=== PATIENT | female | born 1955 | race Two or more races ===

== ENCOUNTER 2016-08-24 16:11 | Emergency (ER) | payer MEDICAID ==
[~2016-08-24] VITALS: Ht 160 cm; Wt 60.3 kg
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
[2016-08-24] MEDS ORDERED: METF500T4 PO (16:23)
[2016-08-24] MEDS ORDERED: CLONIDINE HCL 0.1 MG TABLET ONE (16:24)
[2016-08-24] MEDS ORDERED: CLONIDINE HCL 0.1 MG TABLET PO ONE (16:30)
--- NOTE | 2016-08-24 18:03 | NUR ---
Patient discharged to home in stable condition. Written and verbal after care instructions given. Patient verbalizes understanding of instruction. DRESSING PLACED ON ABRASION TO R KNEE. ARACELIS WRAPPED L ANKLE PER PT REQUEST.
[2016-08-24 18:06] VITALS: BP 175/78
== END 2016-08-24 18:06 | disposition home or self-care (01) ==
LOC: ER 16:15
DX: S40.011A Contusion of right shoulder, initial encounter (principal); S90.02XA Contusion of left ankle, initial encounter; I10 Essential (primary) hypertension; E11.9 Type 2 diabetes mellitus without complications; W22.8XXA Striking against or struck by other objects, initial encounter; Y93.89 Activity, other specified; Y92.830 Public park as the place of occurrence of the external cause; Y99.9 Unspecified external cause status
CPT/HCPCS: 73030; 73564; 73610; 99284; A4606; Z7610

== ENCOUNTER 2019-06-23 16:27 | Emergency (ER) | payer MEDICARE, OTHER ==
[~2019-06-23] VITALS: Ht 157.5 cm; Wt 68.5 kg
[~2019-06-23 16:27] MED LIST: METF-440 PO
[2019-06-23] MEDS ORDERED: hydrALAZINE HCL IV 20 MG VIAL ONE (16:44)
--- NOTE | 2019-06-23 16:53 | NUR ---
blood taken and sent to lab
[2019-06-23 17:00] LABS: BASOPHILS # (AUTO) 0.1 /CMM (0.0-0.2); EOSINOPHILS % (AUTO) 2.1 % (0.0-6.0); HEMATOCRIT 33 % (33-45); HEMOGLOBIN 10.9 g/dL (11.5-14.8); LYMPHOCYTES # (AUTO) 1.5 /CMM (0.8-4.8); MEAN CORPUSCULAR HGB CONC 33 g/dl (31.0-36.0); MEAN CORPUSCULAR VOLUME 95 fL (82-100); MONOCYTES # (AUTO) 0.3 /CMM (0.1-1.30); MONOCYTES % (AUTO) 5.9 % (2.0-12.0); NEUTROPHILS # (AUTO) 3.9 /CMM (1.8-8.9); PLATELET COUNT (AUTO) 166 /CMM (150-450); RED BLOOD CELL COUNT(AUTO) 3.49 MIL/uL (4.0-5.2); WHITE BLOOD COUNT (AUTO) 5.9 K/uL (4.3-11.0)
[2019-06-23] MEDS ORDERED: hydrALAZINE HCL IV 20 MG VIAL IV ONE ×2 (17:00)
--- NOTE | 2019-06-23 17:00 | NUR ---
pt came to er bed 7 c/o headache and high blood pressure. pt has a fistula on the left arm for dialysis. aaox4. not in any distress. no sob. breathing evenly and unlabored. connected to classroom monitor.
[2019-06-23 17:07] LABS: CALCIUM, SERUM 8.2 mg/dL (8.5-10.1); CARBON DIOXIDE 29 mmol/L (21-32); CHLORIDE 102 mmol/L (98-107); CREATININE 5.5 mg/dL (0.6-1.3); GLUCOSE 296 mg/dL (74-106); POTASSIUM 4.4 mmol/L (3.5-5.1); SODIUM SERUM 139 mmol/L (136-145); UREA NITROGEN, BLOOD 27 mg/dL (7-18)
[2019-06-23] MEDS ORDERED: ACETAMINOPHEN ES 500 MG TABLET ONE (18:10)
[2019-06-23] MEDS ORDERED: ACETAMINOPHEN ES 500 MG TABLET PO ONE (18:30)
--- NOTE | 2019-06-23 18:30 | NUR ---
IV removed. Catheter intact and site benign. Pressure and 4x4 applied to site. No bleeding noted. Patient discharged to home in stable condition. Written and verbal after care instructions given. Patient verbalizes understanding of instruction.
[2019-06-23 18:42] VITALS: BP 138/73
== END 2019-06-23 18:42 | disposition home or self-care (01) ==
LOC: ER 16:28
DX: I12.0 Hypertensive chronic kidney disease with stage 5 chronic kidney disease or end stage renal disease (principal); E11.22 Type 2 diabetes mellitus with diabetic chronic kidney disease; N18.6 End stage renal disease; R51 Headache; E11.9 Type 2 diabetes mellitus without complications; E78.5 Hyperlipidemia, unspecified; Z99.2 Dependence on renal dialysis; Z90.710 Acquired absence of both cervix and uterus; Z79.899 Other long term (current) drug therapy
CPT/HCPCS: 36415; 71045; 84484; 80048; 85025; 93005; 96374; 99284; J0360

== ENCOUNTER 2020-07-05 15:18 | Inpatient (IN) | payer MEDICARE, OTHER ==
[~2020-07-05] VITALS: Ht 160 cm; Wt 60.3 kg
[2020-07-05] MEDS ORDERED: MELO-105 PO (15:49)
[2020-07-05] MEDS ORDERED: ATOR80TA PO (15:49)
[2020-07-05] MEDS ORDERED: LEVO50TA8 PO (15:49)
[2020-07-05] MEDS ORDERED: NIFE90TA61 PO (15:49)
[2020-07-05] MEDS ORDERED: GABA300C PO (15:49)
[2020-07-05] MEDS ORDERED: SEVE800T8 PO (15:49)
[2020-07-05] MEDS ORDERED: LABE200T5 PO (15:49)
--- NOTE | 2020-07-05 15:50 | NUR ---
EUMST491 HOME FOR WEAKNESS X 2 MONTHS. UNABLE TO COMPLETE DIALYSIS PER EMS GOES TO DIALYSIS BUT UNABLE TO COMPLETE THIS WEEK. PATIENT A/OX4, BREATHING EVEN AND UNLABORED, SCREAMING, RESTLESS C/O PAIN ON RECTAL AREA. DR. CALLE AT BEDSIDE FOR EVAL.
[2020-07-05] MEDS ORDERED: INSU100V7 SQ (15:51)
[2020-07-05] MEDS ORDERED: INSU100I4 SQ (15:51)
--- NOTE | 2020-07-05 16:04 | NUR ---
IV LINE ESTABLISHED, BLOOD DRAWN AND SENT TO LAB. COVID SWAB SENT WELL.
[2020-07-05] MEDS ORDERED: ACETAMINOPHEN 325 MG TABLET ONE (16:09)
[2020-07-05 16:12] LABS: BASOPHILS # (AUTO) 0.1 /CMM (0.0-0.2); BASOPHILS % (AUTO) 1.5 % (0.0-2.0); EOSINOPHILS % (AUTO) 0.8 % (0.0-6.0); HEMATOCRIT 39 % (33-45); HEMOGLOBIN 12.5 g/dL (11.5-14.8); LYMPHOCYTES # (AUTO) 1.3 /CMM (0.8-4.8); LYMPHOCYTES % (AUTO) 23.8 % (20.0-44.0); MEAN CORPUSCULAR HGB CONC 32 g/dl (31.0-36.0); MEAN CORPUSCULAR VOLUME 100 fL (82-100); MONOCYTES # (AUTO) 0.4 /CMM (0.1-1.30); MONOCYTES % (AUTO) 7.8 % (2.0-12.0); NEUTROPHILS # (AUTO) 3.6 /CMM (1.8-8.9); NEUTROPHILS % (AUTO) 66.1 % (43.0-81.0); PLATELET COUNT (AUTO) 172 /CMM (150-450); RED BLOOD CELL COUNT(AUTO) 3.87 MIL/uL (4.0-5.2); WHITE BLOOD COUNT (AUTO) 5.5 K/uL (4.3-11.0)
[2020-07-05 16:25] LABS: CALCIUM, SERUM 8.6 mg/dL (8.5-10.1); CREATININE 6.5 mg/dL (0.6-1.3); POTASSIUM 5.2 mmol/L (3.5-5.1)
[2020-07-05] MEDS ORDERED: ONDANSETRON HCL/PF 4 MG/2 ML VIAL IV ONE (16:30)
[2020-07-05] MEDS ORDERED: ACETAMINOPHEN 325 MG TABLET PO ONE (16:30)
[2020-07-05] MEDS ORDERED: ONDANSETRON HCL/PF 4 MG/2 ML VIAL ONE (16:30)
--- NOTE | 2020-07-05 16:39 | NUR ---
LAB CALLED PT COVID RESULT NEGATIVE (-)
[2020-07-05] MEDS ORDERED: HYDROCODONE/APAP 5/325MG TABLET PO PRN (17:00)
[2020-07-05] MEDS ORDERED: Z GUARD REMEDY 2 OZ OINT TP PRN (17:00)
[2020-07-05] MEDS ORDERED: ONDANSETRON HCL/PF 4 MG/2 ML VIAL IVP PRN (17:00)
[2020-07-05] MEDS ORDERED: SODIUM POLYSTYRENE SULF. PWD 15 GM UDC PO ONE (17:00)
[2020-07-05] MEDS ORDERED: ACETAMINOPHEN 325 MG TABLET PO PRN (17:00)
[2020-07-05] MEDS ORDERED: MAG HYDROX/AL HYDROX/SIMETH 30 ML UDC PO PRN (17:00)
--- NOTE | 2020-07-05 17:00 | NUR ---
APPLIED GELFOAM ON LEFT BUTTOCK D/T ABSCESS.
[2020-07-05] MEDS: INSULIN LISPRO/ASPART 100 UNIT/ML CARTRIDGE SQ SCH (18:00)
[2020-07-05 18:06] LABS: C-REACTIVE PROTEIN 2.3 mg/dL (0.0-0.9)
--- NOTE | 2020-07-05 19:01 | NUR ---
PROVIDED PATIENT FOOD TRAY.
--- NOTE | 2020-07-05 19:45 | NUR ---
REC'D PT AAOX4, HERE FOR WEAKNESS, PT AMBULATORY WITH STEADY GAIT, AWAITING BED PLACEMENT AT THIS TIME, DENIES ANY SOB/CP. NAD. VSS ,WCTM
[2020-07-05 20:02] LABS: BILIRUBIN,DIRECT 0.4 mg/dL (0.0-0.2); BILIRUBIN,TOTAL 0.9 mg/dL (0.2-1.0)
[2020-07-05] MEDS: ATORVASTATIN 40 MG TABLET PO SCH (22:00)
[2020-07-05] MEDS ORDERED: VANCOMYCIN 1 GM in IV D5W 250ml IV ONE (22:00)
[2020-07-05] MEDS: INSULIN GLARGINE, 100 UNIT/ML CARTRIDGE SQ SCH (22:00)
[2020-07-06] MEDS ORDERED: HYDROCODONE/APAP 5/325MG TABLET ONE (01:57)
--- NOTE | 2020-07-06 02:00 | NUR ---
NORCO 45 GIVEN ORDER PER PT'S REQUEST AND C/O GENRALIZED BODY PAIN
[2020-07-06] MEDS ORDERED: LABETALOL HCL (100MG) 100 MG TABLET ONE ×2 (02:50→08:12)
[2020-07-06] MEDS ORDERED: SODIUM POLYSTYRENE SULFONATE 15 G/60 ML BOTTLE ONE (02:50)
[2020-07-06] MEDS ORDERED: VANCOMYCIN 1 GM VIAL ONE (02:50)
[2020-07-06] MEDS ORDERED: PANTOPRAZOLE 40 MG TABLET.DR PO ONE ×2 (02:51→08:13)
[2020-07-06] MEDS ORDERED: GABAPENTIN 300 MG CAPSULE ONE (02:51)
[2020-07-06] MEDS ORDERED: INSULIN REGULAR, HUMAN 100 UNIT/ML 10 ML VIAL ONE (02:52)
[2020-07-06] MEDS: PANTOPRAZOLE 40 MG TABLET.DR PO SCH ×2 (02:53→08:40)
[2020-07-06] MEDS: LABETALOL HCL (100MG) 100 MG TABLET PO SCH ×3 (02:53→17:00)
[2020-07-06] MEDS: GABAPENTIN 300 MG CAPSULE PO SCH ×2 (02:54→22:05)
--- NOTE | 2020-07-06 06:45 | NUR ---
NO ACUTE EVENTS NOTED,. VSS. NAD. WCTM
[2020-07-06] MEDS ORDERED: VANCOMYCIN 500 MG in IV D5W 100 ML IV PRN (08:00)
[2020-07-06] MEDS ORDERED: LEVOTHYROXINE SODIUM 50 MCG TABLET ONE (08:12)
[2020-07-06] MEDS: LEVOTHYROXINE SODIUM 50 MCG TABLET PO SCH (08:40)
[2020-07-06] MEDS: SEVELAMER CARBONATE 800 MG TABLET PO SCH ×3 (08:54→18:00)
[2020-07-06] MEDS: INSULIN LISPRO/ASPART 100 UNIT/ML CARTRIDGE SQ SCH ×3 (08:56→17:48)
[2020-07-06] MEDS: NIFEdipine XL (30MG) 30 MG TAB PO SCH (08:56)
--- NOTE | 2020-07-06 09:17 | NUR ---
PATIENT ATE 75% OF THE MEAL. MEDICATIONS ADMINISTERED ORDERED. VITALS SIGNS WITHIN NORMAL RANGE.
[2020-07-06 10:11] LABS: BASOPHILS # (AUTO) 0.1 /CMM (0.0-0.2); BASOPHILS % (AUTO) 1.1 % (0.0-2.0); EOSINOPHILS % (AUTO) 1.2 % (0.0-6.0); HEMATOCRIT 35 % (33-45); HEMOGLOBIN 11.4 g/dL (11.5-14.8); LYMPHOCYTES # (AUTO) 1.1 /CMM (0.8-4.8); MEAN CORPUSCULAR HGB CONC 33 g/dl (31.0-36.0); MEAN CORPUSCULAR VOLUME 101 fL (82-100); MONOCYTES # (AUTO) 0.3 /CMM (0.1-1.30); MONOCYTES % (AUTO) 6.8 % (2.0-12.0); NEUTROPHILS # (AUTO) 3.4 /CMM (1.8-8.9); NEUTROPHILS % (AUTO) 67.9 % (43.0-81.0); PLATELET COUNT (AUTO) 149 /CMM (150-450); RED BLOOD CELL COUNT(AUTO) 3.46 MIL/uL (4.0-5.2)
[2020-07-06 10:38] LABS: ALBUMIN 2.7 g/dL (3.4-5.0); BILIRUBIN,TOTAL 0.7 mg/dL (0.2-1.0); CALCIUM, SERUM 8.2 mg/dL (8.5-10.1); MAGNESIUM 2.8 mg/dL (1.8-2.4); PHOSPHORUS 7.7 mg/dL (2.5-4.9); POTASSIUM 4.8 mmol/L (3.5-5.1); TOTAL PROTEIN, SERUM 6.1 g/dL (6.4-8.2)
[2020-07-06 10:43] LABS: CREATININE 7.5 mg/dL (0.6-1.3)
--- NOTE | 2020-07-06 13:56 | NUR ---
DESHAUN HERMOSILLO. PATIENT GOES TO [facility].
--- NOTE | 2020-07-06 14:10 | NUR ---
REPORT GIVEN TO RENE NICHOLE FOR KIRBY.
--- NOTE | 2020-07-06 14:23 | NUR ---
PATIENT TRANSFERRED TO ROOM 325-1 VIA ACLS PROTOCOL. NO DISTRESS NOTED, NEEDS ATTENDED.
[2020-07-06 16:00] VITALS: BP 120/49
--- NOTE | 2020-07-06 19:34 | NUR ---
END OF SHIFT SUMMARY RECEIVED PATIENT IN BED. A/O X 3. L HAND #18. NO S/S OF RESPIRATORY DISTRESS. ON SHIPLEY CATH. ROUTINE MEDS WERE GIVEN ORDERED. SAFETY MEASURES MAINTAINED. BED IN LOWEST POSITION, BRAKES LOCKED. SIDE RAILS UP X2. CALL LIGHT WITHIN REACH. WILL ENDORSE TO VENEER TAPER FOR KIRBY. Addendum: 07/06/20 at 1939 by RENE VICTOR RN WRONG PATIENT. DISREGARD THIS NOTE.
--- NOTE | 2020-07-06 19:43 | NUR ---
*END OF SHIFT SUMMARY PATIENT IN BED. A/O X4. NO SOB NOTED. IN NO APPARENT DISTRESS. MEIR FISTULA. R WRIST #20 G. RCW HD CATH. S/P HD 2L OUT. POST VITAL SIGNS BP 92/50 CA 101 RR 14 TEMP 98.1. BS OF 65, HELD INSULIN LISPRO/ASPART. SAFETY MEASURES MAINTAINED. BED IN LOWEST POSITION, LOCKED. SIDE RAILS UP X2. CALL LIGHT WITHIN REACH. WILL ENDORSE TO SOFTWARE ENGINEERING ANALYST FOR KIRBY. *PLEASE DISREGARD THE FIRST "END OF SHIFT SUMMARY"
--- NOTE | 2020-07-06 19:45 | NUR ---
TELE/RN OPENING NOTES RECEIVED PATIENT RESTING IN BED. PATIENT IS ALERT AND ORIENTED X 4. PATIENTS BREATHING IS EVEN AND UNLABORED. NO SIGNS OF SOB OR RESPIRATORY DISTRESS NOTED. PATIENT HAS IV ACCESS ON R WRIST #20G, MEIR FISTULA, RCW PERMCATH. SAFETY MEASURES ARE IN PLACE, BED IS LOCKED AND PLACED IN THE LOWEST POSITION. CALL LIGHT IS WITHIN REACH, SIDE RAILS UP X 2. WILL CONTINUE TO MONITOR THROUGH OUT SHIFT.
[2020-07-06 20:35] VITALS: BP 135/54
[2020-07-06] MEDS: INSULIN GLARGINE, 100 UNIT/ML CARTRIDGE SQ SCH (22:00)
[2020-07-06] MEDS: ATORVASTATIN 40 MG TABLET PO SCH (22:05)
[2020-07-07 00:21] VITALS: BP 120/91
[2020-07-07 05:23] VITALS: BP 143/59
--- NOTE | 2020-07-07 07:00 | NUR ---
TELE/RN CLOSING NOTES PATIENT RESTING IN BED. PATIENT IS ALERT AND ORIENTED X 4. PATIENTS BREATHING IS EVEN AND UNLABORED. NO SIGNS OF SOB OR RESPIRATORY DISTRESS NOTED. PATIENT HAS IV ACCESS ON R WRIST #20G, MEIR FISTULA, RCW PERMCATH. ALL NEEDS HAVE BEEN MET DURING SHIFT. SAFETY MEASURES ARE IN PLACE, BED IS LOCKED AND PLACED IN THE LOWEST POSITION. CALL LIGHT IS WITHIN REACH, SIDE RAILS UP X 2. WILL ENDORSE CARE TO DAY SHIFT NURSE.
--- NOTE | 2020-07-07 07:58 | NUR ---
MS RN OPENING NOTE PATIENT IS IN BED RESTING. PATIENT IS IN NO ACUTE DISTRESS. NO SOB NOTED. PATIENT IS ON ROOM AIR. PATIENT IS AWAKE AND STABLE. SAFETY PRECAUTIONS ARE IN PLACE. BED IS LOCKED AND IN THE LOWEST POSITION. SIDE RAILS ARE UP, CALL LIGHT WITHIN REACH. WILL CONTINUE TO MONITOR THROUGH OUT THE SHIFT.
[2020-07-07 08:00] VITALS: BP 141/67
[2020-07-07] MEDS: MAGNESIUM HYDROXIDE 30 ML UDC PO PRN ×2 (09:02→23:08)
[2020-07-07] MEDS: NIFEdipine XL (30MG) 30 MG TAB PO SCH (09:02)
[2020-07-07] MEDS: SEVELAMER CARBONATE 800 MG TABLET PO SCH ×3 (09:04→18:07)
[2020-07-07] MEDS: PANTOPRAZOLE 40 MG TABLET.DR PO SCH (09:04)
[2020-07-07] MEDS: LEVOTHYROXINE SODIUM 50 MCG TABLET PO SCH (09:04)
[2020-07-07] MEDS: LABETALOL HCL (100MG) 100 MG TABLET PO SCH ×2 (09:04→17:00)
--- NOTE | 2020-07-07 09:24 | NUR ---
WOUND CARE CONSULT: PT PRESENTS WITH LEFT BUTTOCK HEALING WOUND, PRESENT ON ADMISSION. RECOMMENDATIONS MADE FOR SKIN PROTECTION AND WOUND CARE. DISCUSSED WITH NURSING STAFF. MD IN AGREEMENT WITH PLAN OF CARE. THERE IS A RASH/SKIN CONDITION TO MIDBACK, UNKNOWN ETIOLOGY. RN TO DISCUSS WITH MD TODAY. Addendum: 07/07/20 at 0926 by CHRISSY MCGRATH WNDNU Amended: Links added.
[2020-07-07] MEDS: INSULIN LISPRO/ASPART 100 UNIT/ML CARTRIDGE SQ SCH ×3 (09:51→18:00)
--- NOTE | 2020-07-07 09:52 | NUR ---
ORTHO NURSE NOTE INSULIN LISPRO WAS NOT AVAILABLE, ORDERED FROM PHARMACY.
[2020-07-07 16:00] VITALS: BP 100/49
[2020-07-07] MEDS: NEOMY SULF/BACITRAC ZN/POLY 15 GM TUBE TP SCH (18:02)
--- NOTE | 2020-07-07 18:07 | NUR ---
SUPERVISOR SHEARING NOTE PATIENTS BLOOD SUGAR WAS 71, DID NOT ADMINISTER SCHEDULED INSULIN.
--- NOTE | 2020-07-07 19:48 | NUR ---
SPRING [employer]ODUCTION SUPERVISOR CLOSING NOTE PATIENT IS IN BED RESTING. PATIENT IS IN NO ACUTE DISTRESS. NO SOB NOTED. PATIENT IS ON ROOM AIR. PATIENT IS ON TELE MONITOR READING SR 78. PATIENT IS AWAKE AND STABLE. SAFETY PRECAUTIONS ARE IN PLACE. BED IS LOCKED AND IN THE LOWEST POSITION. SIDE RAILS ARE UP, CALL LIGHT WITHIN REACH. ENDORSE PATIENT TO RIGGING MAN NURSE FOR KIRBY.
[2020-07-07 20:00] VITALS: BP 127/47
[2020-07-07] MEDS: INSULIN GLARGINE, 100 UNIT/ML CARTRIDGE SQ SCH (22:00)
[2020-07-07] MEDS: GABAPENTIN 300 MG CAPSULE PO SCH (23:08)
[2020-07-07] MEDS: ATORVASTATIN 40 MG TABLET PO SCH (23:08)
--- NOTE | 2020-07-07 23:18 | NUR ---
MS/TELE/RN PATIENT REPORTS NO BOWEL MOVEMENT X 3 DAYS, MOM WAS GIVEN ORDERED. PATIENT C/OF "STOMACH PAIN", MAALOX WAS GIVEN ORDERED, WILL MONITOR.
[2020-07-08] VITALS: BP 108/47
--- NOTE | 2020-07-08 01:19 | NUR ---
MS/TELE/RN PATIENT IS SLEEPING AT THIS TIME, APPEAR COMFORTABLE, NO SIGNS OF DISTRESS NOTED, CALL LIGHT IN REACH, WILL CONTINUE TO MONITOR.
--- NOTE | 2020-07-08 06:47 | NUR ---
MS/TELE/RN PATIENT IS AWAKE, ALERT, ORIENTED, COMFORTABLE, NO C/O PAIN, NO DISTRESS NOTE, ALL NEEDS ATTENDED AT THIS TIME, WILL CONTINUE TO MONITOR.
[2020-07-08 08:00] VITALS: BP 118/56
[2020-07-08] MEDS: NIFEdipine XL (30MG) 30 MG TAB PO SCH (08:43)
[2020-07-08] MEDS: LABETALOL HCL (100MG) 100 MG TABLET PO SCH (08:43)
[2020-07-08] MEDS: NEOMY SULF/BACITRAC ZN/POLY 15 GM TUBE TP SCH (08:43)
[2020-07-08] MEDS: PANTOPRAZOLE 40 MG TABLET.DR PO SCH (08:44)
[2020-07-08] MEDS: LEVOTHYROXINE SODIUM 50 MCG TABLET PO SCH (08:44)
[2020-07-08] MEDS: INSULIN LISPRO/ASPART 100 UNIT/ML CARTRIDGE SQ SCH ×2 (08:45→12:33)
[2020-07-08] MEDS: SEVELAMER CARBONATE 800 MG TABLET PO SCH ×2 (08:45→12:32)
--- NOTE | 2020-07-08 10:45 | NUR ---
MS RN NOTE PATIENT IS DISCHARGED FROM TELE MONITOR
[2020-07-08] MEDS ORDERED: BLOOD SUGAR DIAGNOSTIC 1 EACH STRIP IN SCH (12:00)
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
[2020-07-08 16:00] VITALS: BP 130/60
[2020-07-08] MEDS ORDERED: MUPIROCIN OINT 2% 22 GM TUBE NS SCH (16:00)
[2020-07-08 17:13] VITALS: BP 130/60
--- NOTE | 2020-07-08 17:40 | NUR ---
MS CASINO ENFORCEMENT AGENT NOTE PATIENT IS IN NO ACUTE DISTRESS. PATIENT IS MEDICALLY STABLE. NO SOB NOTED. BREATHING IS EVEN AND UNLABORED. VITAL SIGNS ARE WNL. DISCHARGE INSTRUCTIONS PROVIDED. MRSA INSTRUCTIONS AND TREATMENT PROVIDED. PATIENT VERBALIZED UNDERSTANDING. SKIN ASSESSED, WOUND CARE PROVIDED ORDERED. PATIENT KEPT, CLEAN AND COMFORTABLE THROUGH OUT HOSPITAL STAY. BELONGINGS LIST VERIFIED AND SIGNED. PATIENTS IV LINE AND ID BAND REMOVED. PATIENT WAS PICKED UP BY HER BOYFRIEND VIA PRIVATE CAR. MD IS AWARE OF DISCHARGE.
== END 2020-07-08 17:40 | disposition home or self-care (01) | DRG 291 ==
LOC: ER 15:21 → TRANSITION 21:01 → TELE 07-06 14:07 → MED 07-08 11:08
PROVIDERS: ADMIT Internal Medicine
PROC: 5A1D70Z Performance of Urinary Filtration, Intermittent, Less than 6 Hours Per Day (ICD-10-PCS; principal; 2020-07-06)
DX: I13.2 Hypertensive heart and chronic kidney disease with heart failure and with stage 5 chronic kidney disease, or end stage renal disease (principal); I50.33 Acute on chronic diastolic (congestive) heart failure; N18.6 End stage renal disease; L02.31 Cutaneous abscess of buttock; E87.1 Hypo-osmolality and hyponatremia; Z99.2 Dependence on renal dialysis; I25.10 Atherosclerotic heart disease of native coronary artery without angina pectoris; E11.22 Type 2 diabetes mellitus with diabetic chronic kidney disease; E11.65 Type 2 diabetes mellitus with hyperglycemia; Z91.14 Patient's other noncompliance with medication regimen; Z90.710 Acquired absence of both cervix and uterus; Z79.4 Long term (current) use of insulin; Z20.822 Contact with and (suspected) exposure to COVID-19; Z79.899 Other long term (current) drug therapy; E87.5 Hyperkalemia; F39 Unspecified mood [affective] disorder; F41.9 Anxiety disorder, unspecified; N25.0 Renal osteodystrophy; D64.9 Anemia, unspecified; I25.2 Old myocardial infarction
CPT/HCPCS: 36415; 71045-TC; 80048-TC; 80053-TC; 80202-TC; 82247-TC; 82248-TC; 82962-TC; 83605-TC; 83735-TC; 83880; 84100-TC; 84484-TC; 85025-TC; 85378-TC; 85730-TC; 86140-TC; 86706; 86850-TC; 87081-TC; 87340; 90935-TC; C9803; G0378; J1815; J2405; J3370; J7050; J7060